=== PATIENT | female | born 1930 | race Hispanic/Latino ===

== ENCOUNTER 2017-12-22 18:54 | Emergency (ER) | payer MEDICARE ==
[2017-12-22] MEDS ORDERED: HYDROCODONE/ACETAMINOPHEN 10/325 MG TAB ONE (19:17)
[2017-12-22 19:44] LABS: BASOPHILS % (AUTO) 0.5 % (0.0-5.0); EOSINOPHILS % (AUTO) 0.5 % (0.0-8.0); HEMATOCRIT 39.3 % (36-48); LYMPHOCYTES % (AUTO) 21.7 % (21.0-51.0); MEAN CORPUSCULAR HEMOGLOBIN 31.1 pg (27.0-33.0); MEAN CORPUSCULAR HGB CONC 33.6 g/dL (32.0-36.0); MEAN CORPUSCULAR VOLUME 92.8 fL (79-99); MONOCYTES % (AUTO) 8.1 % (3.0-13.0); NEUTROPHILS % (AUTO) 69.2 % (40.0-77.0); PLATELET COUNT (AUTO) 212 K/uL (130-400); RED BLOOD CELL COUNT(AUTO) 4.23 MIL/uL (4.00-5.50); RED CELL DISTRIBUTION WIDTH 13.2 % (11.0-15.5); WHITE BLOOD COUNT (AUTO) 8.4 K/uL (4.8-10.8)
[2017-12-22 19:59] LABS: CREATININE 1.2 mg/dL (0.5-1.5); POTASSIUM 3.8 mmol/L (3.5-5.1)
[2017-12-24] MEDS ORDERED: CALC-190 PO (20:05)
[2017-12-24] MEDS ORDERED: BACL10TA PO (20:05)
[2017-12-24] MEDS ORDERED: FOLI1TAB15 PO (20:05)
[2017-12-24] MEDS ORDERED: METH2.5T6 PO (20:05)
[2017-12-24] MEDS ORDERED: ASPI-555 PO (20:05)
[2017-12-24] MEDS ORDERED: SIMV10TA6 PO (20:05)
[2017-12-24] MEDS ORDERED: METH4TAB16 PO (20:05)
[2017-12-24] MEDS ORDERED: ROPI1TAB11 PO (20:05)
[2017-12-24] MEDS ORDERED: AMLO2.5T PO (20:05)
== END 2017-12-22 20:20 | disposition home or self-care (01) ==
LOC: EDH 18:54
DX: M79.604 Pain in right leg (principal); E78.5 Hyperlipidemia, unspecified; I10 Essential (primary) hypertension; I25.10 Atherosclerotic heart disease of native coronary artery without angina pectoris; Z88.0 Allergy status to penicillin; Z79.899 Other long term (current) drug therapy
CPT/HCPCS: 36415; 80048; 85025; 93971

== ENCOUNTER → 2019-05-22 | Outpatient (CLI) | payer MEDICARE ==
[~2019-05-22] MED LIST: AMLO2.5T4 PO; ASPI-555 PO; AZIT250T PO; METH2.5T6 PO; ROPI1TAB11 PO
== END | disposition home or self-care (01) ==
LOC: RAH 08:42
PROVIDERS: ATTEND Internal Medicine
DX: M47.817 Spondylosis without myelopathy or radiculopathy, lumbosacral region (principal); M48.061 Spinal stenosis, lumbar region without neurogenic claudication
CPT/HCPCS: 72148